=== PATIENT | female | born 1975 | race Two or more races ===

== ENCOUNTER 2024-08-11 20:32 | Emergency (ER) | payer OTHER ==
[~2024-08-11] VITALS: Ht 160 cm; Wt 72.6 kg
[2024-08-11] MEDS ORDERED: RINGERS SOLUTION,LACTATED 1,000 ML IV STA (21:51)
[2024-08-11] MEDS ORDERED: METOCLOPRAMIDE HCL 5 MG/ML VIAL IM STA (21:52)
[2024-08-11] MEDS ORDERED: HYOSCYAMINE SULFATE 0.125 MG TAB.SUBL SL STA (21:52)
[2024-08-11] MEDS ORDERED: FAMOtidine 10 MG/ML (4ML VIAL) IV PUSH STA (21:53)
[2024-08-11] MEDS ORDERED: METOCLOPRAMIDE HCL 5 MG/ML VIAL ONE (22:04)
[2024-08-11] MEDS ORDERED: HYOSCYAMINE SULFATE 0.125 MG TAB.SUBL ONE (22:04)
[2024-08-11] MEDS ORDERED: FAMOTIDINE/PF 20 MG/2 ML VIAL ONE (22:04)
[2024-08-11 23:12] LABS: URINE APPEARANCE Clear; URINE BILIRRUBIN Negative (NEGATIVE); URINE BLOOD Negative; URINE COLOR Yellow; URINE GLUCOSE Negative (NEGATIVE); URINE KETONE Negative (NEGATIVE); URINE LEUKOCYTE Negative; URINE NITRATE Negative; URINE PROTEIN Negative (NEGATIVE); URINE UROBILINOGEN 0.2 E.U./dl
[2024-08-11 23:14] LABS: HEMATOCRIT 43.5 % (36.0-45.00); HEMOGLOBIN 14.8 g/dL (12.0-15.00); MEAN CORPUSCULAR HEMOGLOBIN 28.9 pg (27.00-32.0); PLATELET COUNT 297 K/uL (150-450); RED BLOOD COUNT 5.12 M/uL (4.00-6.00); RED CELL DISTRIBUTION WIDTH 13.2 % (11.5-14.5)
[2024-08-11 23:15] LABS: URINE BACTERIA 607.3 uL (0.0-1933); URINE EPITHELIAL CELLS 21.3 uL (0.0-38.8); URINE RBC 9.3 uL (0.0-20.8)
[2024-08-11 23:47] LABS: ALBUMIN 3.9 gm/dL (3.4-5.0); BILIRUBIN TOTAL 0.57 mg/dL (0.3-1.2); CALCIUM 9.6 mg/dL (8.5-10.1); CREATININE SERUM 1.04 mg/dL (0.55-1.02); GFR 56.09; GLOBULINA 4.6 G/DL (2.4-3.5); POTASSIUM 4.11 mEq/L (3.5-5.1); TOTAL PROTEIN 8.5 gm/dL (6.4-8.2)
[2024-08-12 00:15] LABS: PROTHROMBIN TIME 10.9 SECONDS (9.0-11.5)
[2024-08-12] MEDS ORDERED: MEPERIDINE HCL/PF 50 MG/ML VIAL IM STA (04:02)
[2024-08-12] MEDS ORDERED: PROMETHAZINE HCL 50 MG/ML AMPUL IM STA (04:02)
[2024-08-12] MEDS ORDERED: PROMETHAZINE HCL 50 MG/ML AMPUL IM ONE (04:17)
[2024-08-12] MEDS ORDERED: 0.9 % SODIUM CHLORIDE 1,000 ML IV STA (04:34)
[2024-08-12] MEDS ORDERED: DIATRIZOATE MEGLUMINE, SODIUM 30 ML BOTTLE ONE (06:10)
[2024-08-12] MEDS ORDERED: KETOROLAC TROMETHAMINE 60 MG VIAL IM STA (06:29)
[2024-08-12] MEDS ORDERED: KETOROLAC TROMETHAMINE 30 MG VIAL IV STA (06:31)
[2024-08-12] MEDS ORDERED: KETOROLAC TROMETHAMINE 30 MG VIAL ONE (06:34)
== END 2024-08-12 10:18 | disposition home or self-care (01) ==
LOC: ER 20:33
DX: K52.89 Other specified noninfective gastroenteritis and colitis (principal)